=== PATIENT | male | born 1950 | race Caucasian/White ===

== ENCOUNTER → 2016-03-25 | Outpatient (CLI) | payer BC ==
[~2016-03-25] MED LIST: CALC500C50 PO; CLB/200 PO; CLON1TAB3 PO; HYDR-1838 PO; MELA3TAB7 PO; NAPR1TAB9 PO; ONDA4TAB10 SL; OXYC-57 PO; OXYC1TAB3 PO; TAMS0.4C38 PO; ZNT/150 PO; ZOLP5TAB PO
== END | disposition home or self-care (01) ==
LOC: C.RDSM 08:00
PROVIDERS: ATTEND Family Medicine
DX: M54.5 Low back pain (principal)

== ENCOUNTER → 2016-04-09 | Outpatient (CLI) | payer BC ==
--- NOTE | 2016-04-09 17:31 | DIAGNOSTIC IMAGING REPORT ---
SPECT scan BONE SCAN SPECT CLINICAL HISTORY: LOW BACK PAIN pain TECHNIQUE: Transaxial acquisition with multi axial SPECT images. COMPARISON STUDY: None FINDINGS: Degenerative activity about the right and to lesser extent left shoulder. Increased activity anterior aspect left ninth 10th and 11th ribs. This may be posttraumatic. Increase in activity about the knees bilaterally possibly consistent with the patient's known history of total knee arthroplasties. SPECT images of the spine demonstrate any increase in activity laterally at T6 level of the thoracic spine as well as the right lateral aspect of T11. Patchy areas of increased activity in the mid to low lumbar region are also present. IMPRESSION: 1. Scattered areas of degenerative and/or postoperative activity. 2. 3 foci of increased activity lower left ribs possibly posttraumatic. 3. Rather atypical increased neck cavity of the mid to lower thoracic spine as well as the lower lumbar spine. 4. Although this potentially is degenerative, MRI of the lumbar and thoracic region is recommended to exclude the possibility of a metastatic process. Electronically signed by: Ernie Muñiz M.D. 04/09/2016 5:30 PM Dictated Date/Time: 04/09/2016 5:26 PM
== END | disposition home or self-care (01) ==
LOC: C.NUCL 11:06
PROVIDERS: ATTEND Family Medicine
DX: M54.5 Low back pain (principal)

== ENCOUNTER → 2016-04-09 | Outpatient (CLI) | payer BC ==
--- NOTE | 2016-04-09 15:19 | DIAGNOSTIC IMAGING REPORT ---
RIGHT KNEE 3 VIEWS CLINICAL HISTORY: RIGHT KNEE PAIN S/P TKA Right COMPARISON STUDY: Bilateral knees 06/17/2014. FINDINGS: There are bilateral total knee arthroplasties. The right is a long stemmed constrained prosthesis. The hardware appears intact. No fracture or dislocation. No abnormal periprosthetic lucency. No significant right knee effusion. No soft tissue swelling. IMPRESSION: 1. Bilateral total knee arthroplasties. 2. The hardware is intact. No abnormal periprosthetic lucency. Electronically signed by: Renan Martin M.D. 04/09/2016 3:18 PM Dictated Date/Time: 04/09/2016 3:15 PM
== END | disposition home or self-care (01) ==
LOC: C.RDSM 08:00
PROVIDERS: ATTEND Physician Assistant
DX: Z96.653 Presence of artificial knee joint, bilateral (principal)

== ENCOUNTER → 2016-04-22 | Outpatient (CLI) | payer BC ==
--- NOTE | 2016-04-22 10:49 | DIAGNOSTIC IMAGING REPORT ---
ORBIT RADIOGRAPHS 3 VIEWS HISTORY: Pre-MRI screening. COMPARISON: None. FINDINGS: No orbital metallic foreign bodies noted. There is a 2 mm metallic density that projects over the left maxillary sinus. IMPRESSION: 1. No orbital metallic foreign body. 2. 2 mm metallic density adjacent to the left maxillary sinus. This does not represent a contraindication to MRI. Electronically signed by: Pako Oden M.D. 04/22/2016 10:47 AM Dictated Date/Time: 04/22/2016 10:44 AM
--- NOTE | 2016-04-22 11:59 | DIAGNOSTIC IMAGING REPORT ---
MRI OF THE THORACIC SPINE WITHOUT CONTRAST CLINICAL HISTORY: DORSALGIA, BACK PAIN COMPARISON: Bone scan April 09, 2016. TECHNIQUE: Utilizing a 1.5 Chantal magnet and dedicated coil, multiplanar, multiecho imaging of the thoracic spine was performed without IV contrast. FINDINGS: Alignment of the thoracic spine is anatomic. Vertebral body heights are maintained. There is a old mild compression deformity involving the superior endplate of L1. The lumbar spine will be reported separately. No areas of suspicious marrow replacement within the thoracic spine. A few small T1 and T2 hyperintense lesions represent hemangiomas. Thoracic cord signal and caliber are normal. There is no intracanalicular mass or fluid collection. Paravertebral soft tissues are unremarkable. There is mild to moderate multilevel disc space narrowing with mild disc bulges, noted at the T7-T8, T10-T11 and T 11-T12 levels. There is no significant central canal or neural foraminal stenosis. IMPRESSION: 1. Mild multilevel degenerative disc disease and facet arthrosis of the thoracic spine with mild multilevel disc bulges. No significant central canal or neural foraminal stenosis. 2. Normal thoracic cord signal and caliber. 3. No evidence of metastatic disease within the thoracic spine. The findings on the bone scan are likely degenerative. 4. Old mild L1 compression fracture. Electronically signed by: Pako Oden M.D. 04/22/2016 11:58 AM Dictated Date/Time: 04/22/2016 11:53 AM
--- NOTE | 2016-04-22 12:00 | DIAGNOSTIC IMAGING REPORT ---
MRI LUMBAR SPINE W/O CONTRAST CLINICAL HISTORY: Low back pain, abnormal bone scan. TECHNIQUE: Sagittal and axial T1, T2 and STIR images were obtained. COMPARISON STUDY: No previous studies for comparison. OBSERVATIONS: The vertebral bodies and posterior elements appear intact. There is no abnormal bony signal present to suggest a marrow replacement process. L1-2: No disc protrusions or extrusions. No evidence of spinal canal or neural foraminal compromise. L2-3: There is a mild circumferential disc bulge. There is minimal triangular spinal canal narrowing. There is no significant foraminal narrowing L3-4: There is a circumferential disc bulge. There is facet joint arthropathy. There is mild spinal stenosis. There is minor right-sided foraminal narrowing. L4-5: There is a circumferential disc bulge. There is mild triangular spinal canal narrowing. There is facet joint arthropathy. There is moderate right-sided foraminal narrowing and mild left-sided foraminal narrowing L5-S1: There is a grade 1 spondylolisthesis of L5 and S1. There is a circumferential disc bulge. There is facet joint arthropathy. There is mild bilateral foraminal narrowing. The conus medullaris and cauda equina appear normal. There is an old mild superior endplate L1 compression fracture. IMPRESSION: 1. Multilevel spondylitic changes with mild multilevel spinal canal narrowing and mild multilevel foraminal narrowing 2. Old superior endplate L1 compression deformity 3. No MRI evidence of metastatic disease. Electronically signed by: Noel Gaston M.D. 04/22/2016 11:59 AM Dictated Date/Time: 04/22/2016 11:53 AM
== END | disposition home or self-care (01) ==
LOC: C.RAD 10:18
PROVIDERS: ATTEND Family Medicine
DX: M54.9 Dorsalgia, unspecified (principal); Z13.5 Encounter for screening for eye and ear disorders; M51.34 Other intervertebral disc degeneration, thoracic region

== ENCOUNTER 2016-07-24 20:26 | Emergency (ER) | payer BC ==
[~2016-07-24] VITALS: Ht 165.1 cm; Wt 77.2 kg
[~2016-07-24 20:26] MED LIST changes: -CLB/200 PO; -CLON1TAB3 PO; -NAPR1TAB9 PO; -ONDA4TAB10 SL; -OXYC-57 PO; -OXYC1TAB3 PO; -TAMS0.4C38 PO
[2016-07-24 20:28] VITALS: TEMP 36.4; Ht 165.1 cm; Wt 77.2 kg
[2016-07-24] MEDS ORDERED: SODIUM CHLORIDE 0.9% 1000ML 1,000 ML IV STA (20:56)
[2016-07-24 21:10] LABS: URINE APPEARANCE CLEAR (CLEAR); URINE BILIRUBIN NEG (NEG); URINE COLOR YELLOW; URINE NITRITE NEG (NEG); URINE SPECIFIC GRAVITY 1.017 (1.000-1.030); UROBILINOGEN NEG (NEG)
[2016-07-24 21:17] LABS: BASO % 0.3 %; BASO ABS # 0.03 K/uL (0-0.2); COMPLETE YES; EOS % 0.9 %; HEMATOCRIT 46.5 % (42-52); IG% 0.2 %; LYMPH % 9.1 %; LYMPH ABS # 0.78 K/uL (1.2-3.4); MEAN CELL VOLUME 88.2 fL (80-100); MEAN CORPUSCULAR HEMOGLOBIN 30.7 pg (25-34); MEAN CORPUSCULAR HGB CONC 34.8 g/dl (32-36); MEAN PLATELET VOLUME 9.5 fL (7.4-10.4); NEUT % 80.5 %; PLATELET COUNT 180 K/uL (130-400); RED BLOOD COUNT 5.27 M/uL (4.7-6.1); WHITE BLOOD COUNT 8.58 K/uL (4.8-10.8)
[2016-07-24 21:23] LABS: MANUAL MICROSCOPIC REQUIRED? NO; REVIEW REQ? NO
[2016-07-24] MEDS ORDERED: NAPR1TAB9 PO (21:36)
[2016-07-24] MEDS ORDERED: CLON1TAB3 PO (21:36)
[2016-07-24] MEDS ORDERED: CLB/200 PO (21:36)
[2016-07-24 21:39] LABS: BUN/CREATININE RATIO 18.8 (10-20); CREATININE 1.3 mg/dl (0.60-1.40)
--- NOTE | 2016-07-24 21:39 | DIAGNOSTIC IMAGING REPORT ---
CT SCAN OF THE ABDOMEN AND PELVIS WITHOUT IV CONTRAST CLINICAL HISTORY: Left flank pain. COMPARISON STUDY: Abdominal CT dated 09/14/2012. TECHNIQUE: CT scan of the abdomen and pelvis is performed from the lung bases to the proximal femora. Images are reviewed in the axial, sagittal, and coronal planes. IV contrast was not administered for this examination as per the referring clinician. Automated dose control exposure was utilized. CT DOSE: 851.72 mGy.cm FINDINGS: Lung bases: The heart is normal in size and there is trace pericardial fluid. Linear scarring versus atelectasis is noted in the lingula. The lung bases are otherwise clear. There is a tiny hiatal hernia. Liver: The unenhanced liver is normal in size, contour, and attenuation. There is no intrahepatic biliary ductal dilatation. Gallbladder: Unremarkable. Spleen: Normal in size and attenuation. Pancreas: Unremarkable. Adrenal glands: Unremarkable. Kidneys: The unenhanced kidneys are normal in size. There is a 4 mm obstructing calculus in the distal left ureter located just above the vesicoureteral junction as seen on axial image #322. This causes mild to moderate left-sided hydroureteronephrosis. There is associated left-sided perinephric stranding and trace fluid. No additional calculi are identified in the left kidney. No right renal calculi are seen and there is no right-sided hydronephrosis. There is no evidence of contour deforming renal mass lesion. Abdominal vasculature: The abdominal aorta is normal in course and caliber noting moderate atherosclerotic calcification. Bowel: There are postoperative changes from rectosigmoid resection with colocolonic anastomosis. No bowel obstruction is identified. Mild colonic fecal retention is observed. The appendix is well-visualized and normal. Peritoneum: There is no intraperitoneal free air or abdominal ascites. There is a small fat-containing umbilical hernia. Lymphadenopathy: None. Pelvic viscera: The bladder, prostate, and seminal vesicles are normal as visualized. Skeletal structures: The skeletal structures are osteopenic. No lytic or blastic lesions are seen. Moderate lumbosacral spondylosis is observed. There are bilateral pars defects at L5 with grade 1 anterolisthesis at L5-S1. There is a mild and age indeterminant superior endplate compression deformity of L1. Sclerotic change is noted in the sacroiliac joints. There are healed left-sided rib fractures. IMPRESSION: 1. There is a 4 mm obstructing calculus in the distal left ureter just above the vesicoureteral junction. This causes mild to moderate left-sided hydroureteronephrosis. 2. No additional calculi are seen either kidney. 3. There are postoperative changes from rectosigmoid resection with colocolonic anastomosis. No bowel obstruction is seen. 4. Additional findings as above. Electronically signed by: Urbano Way M.D. 07/24/2016 9:38 PM Dictated Date/Time: 07/24/2016 9:32 PM
[2016-07-24 21:49] LABS: POTASSIUM 4.2 mmol/L (3.5-5.1)
[2016-07-24 22:10] LABS: CALCIUM 9.1 mg/dl (8.5-10.1)
[2016-07-24] MEDS ORDERED: KETOROLAC TROMETHAMINE 30 MG/ML VIAL IV STA (22:15)
--- NOTE | 2016-07-24 22:20 | EMERGENCY ROOM VISIT NOTE ---
History First contact with patient: 20:32 Chief Complaint: FLANK PAIN Stated Complaint: LEFT SIDE PAIN History of Present Illness The patient is a 65 year old male who presents to the Emergency Room with complaints of left flank pain that started around 2 PM today. Patient states the pain came on suddenly over about 10 minutes, was severe and sharp, 9/10. Associated nausea, no vomiting. No prior history of pain like this. Patient did not take any medications for the pain. He currently rates his pain as 3/10 , states it has subsided significantly on the way to the ER. He also states the pain improved after he urinated. He denies chest pain, shortness of breath , fever/chills, diarrhea/constipation, hematuria, dysuria, penile discharge. Past medical history significant for colon cancer which was treated with surgical resection and radiation 2002, patient currently in remission. Review of Systems GENERAL: Denies fevers, chills, malaise, fatigue, unintentional weight changes. HEENT: Denies dizziness, visual problems, hearing loss, tinnitus. Denies difficulty swallowing or oral lesions. PULMONARY: Denies cough, shortness of breath, sputum production or hemoptysis. CARDIOVASCULAR: Denies chest pain, palpitations, dyspnea on exertion, orthopnea or peripheral edema. GASTROINTESTINAL: + Abdominal pain/flank pain, nausea Denies diarrhea, constipation, vomiting. GENITOURINARY: Denies dysuria, frequency, urgency or nocturia. Denies hematuria. NEUROLOGIC: Denies history of epilepsy, CVA, TIA or chronic headaches. MUSCULOSKELETAL: Denies history of joint tenderness/swelling. SKIN: Denies rashes or lesions. PSYCHIATRIC: Denies history of depression or mental illness. ENDOCRINE: Denies history of diabetes, thyroid disorders, abnormal hair growth or sexual dysfunction. Past Medical/Surgical History Medical Problems: (1) Colon cancer Family History FH: cancer FH: heart disease Hypertension Social History Smoking Status: Never Smoker Alcohol Use: none Marital Status: Housing Status: lives with significant other Occupation Status: employed Current/Historical Medications Scheduled Celecoxib (CeleBREX), 200 MG PO QAM Clonazepam (Klonopin), 1 TAB PO HS Ondasetron Odt (Zofran Odt), 4 MG SL Q6H Tamsulosin Hcl (Flomax), 0.4 MG PO DAILY Scheduled PRN Naproxen (Aleve), 220 MG PO UD PRN for Pain Oxycodone/Acetaminophen 5MG/325MG (Percocet 5MG/325MG), 1 TABLET PO Q4H PRN for Pain Allergies Coded Allergies: Latex1 -Allergic Contact Dermititis (Verified Allergy, Unknown, ITCHING, 02/06/16) Physical Exam Vital Signs Date Time Temp Pulse Resp B/P (MAP) Pulse Ox O2 Delivery O2 Flow Rate FiO2 07/24/16 22:31 73 18 121/69 98 Room Air 07/24/16 21:11 74 07/24/16 20:28 36.4 78 18 147/96 97 Room Air Physical Exam CONSTITUTIONAL: No acute distress. Nontoxic appearing. Well appearing and well nourished. Mildly dehydrated. Alert and oriented X 4 with normal affect. HEENT: Normocephalic, atraumatic. Pupils equal, round and reactive to light, EOMI. TMs normal. Pharynx normal. Dry mucous membranes. NECK: Supple, full active range of motion without discomfort. RESPIRATORY: Clear to auscultation bilaterally with no wheezing, crackles, rhonchi or stridor. Equal expansion bilaterally. CARDIOVASCULAR: Regular rate and rhythm with no murmurs, rubs or gallops. Normal peripheral perfusion. No edema. GASTROINTESTINAL: Soft, nondistended. Bowel sounds present in all quadrants. Moderate tenderness in the left flank and mid abdomen, mild left CVA tenderness. No rebound, no guarding. MUSCULOSKELETAL: Full range of motion of all joints without discomfort. INTEGUMENTARY: No rash or other significant dermatologic conditions noted. NEUROLOGIC: Cranial nerves II-XII grossly intact. No focal neurologic deficits noted. Medical Decision & Procedures ER Provider Diagnostic Interpretation: CT SCAN OF THE ABDOMEN AND PELVIS WITHOUT IV CONTRAST CLINICAL HISTORY: Left flank pain. COMPARISON STUDY: Abdominal CT dated 09/14/2012. TECHNIQUE: CT scan of the abdomen and pelvis is performed from the lung bases to the proximal femora. Images are reviewed in the axial, sagittal, and coronal planes. IV contrast was not administered for this examination as per the referring clinician. Automated dose control exposure was utilized. CT DOSE: 851.72 mGy.cm FINDINGS: Lung bases: The heart is normal in size and there is trace pericardial fluid. Linear scarring versus atelectasis is noted in the lingula. The lung bases are otherwise clear. There is a tiny hiatal hernia. Liver: The unenhanced liver is normal in size, contour, and attenuation. There is no intrahepatic biliary ductal dilatation. Gallbladder: Unremarkable. Spleen: Normal in size and attenuation. Pancreas: Unremarkable. Adrenal glands: Unremarkable. Kidneys: The unenhanced kidneys are normal in size. There is a 4 mm obstructing calculus in the distal left ureter located just above the vesicoureteral junction as seen on axial image #322. This causes mild to moderate left-sided hydroureteronephrosis. There is associated left-sided perinephric stranding and trace fluid. No additional calculi are identified in the left kidney. No right renal calculi are seen and there is no right-sided hydronephrosis. There is no evidence of contour deforming renal mass lesion. Abdominal vasculature: The abdominal aorta is normal in course and caliber noting moderate atherosclerotic calcification. Bowel: There are postoperative changes from rectosigmoid resection with colocolonic anastomosis. No bowel obstruction is identified. Mild colonic fecal retention is observed. The appendix is well-visualized and normal. Peritoneum: There is no intraperitoneal free air or abdominal ascites. There is a small fat-containing umbilical hernia. Lymphadenopathy: None. Pelvic viscera: The bladder, prostate, and seminal vesicles are normal as visualized. Skeletal structures: The skeletal structures are osteopenic. No lytic or blastic lesions are seen. Moderate lumbosacral spondylosis is observed. There are bilateral pars defects at L5 with grade 1 anterolisthesis at L5-S1. There is a mild and age indeterminant superior endplate compression deformity of L1. Sclerotic change is noted in the sacroiliac joints. There are healed left-sided rib fractures. IMPRESSION: 1. There is a 4 mm obstructing calculus in the distal left ureter just above the vesicoureteral junction. This causes mild to moderate left-sided hydroureteronephrosis. 2. No additional calculi are seen either kidney. 3. There are postoperative changes from rectosigmoid resection with colocolonic anastomosis. No bowel obstruction is seen. 4. Additional findings as above. Laboratory Results 07/24/16 21:05 Red Blood Count 5.27, Mean Corpuscular Volume 88.2, Mean Corpuscular Hemoglobin 30.7, Mean Corpuscular Hemoglobin Concent 34.8, Mean Platelet Volume 9.5, Neutrophils (%) (Auto) 80.5, Lymphocytes (%) (Auto) 9.1, Monocytes (%) (Auto) 9.0, Eosinophils (%) (Auto) 0.9, Basophils (%) (Auto) 0.3, Neutrophils # (Auto) 6.90, Lymphocytes # (Auto) 0.78, Monocytes # (Auto) 0.77, Eosinophils # (Auto) 0.08, Basophils # (Auto) 0.03 07/24/16 21:05 Test 07/24/16 20:35 07/24/16 21:05 Urine Color YELLOW Urine Appearance CLEAR (CLEAR) Urine pH 5.0 (4.5-7.5) Urine Specific [place] 1.017 (1.000-1.030) Urine Protein NEG (NEG) Urine Glucose (UA) NEG (NEG) Urine Ketones NEG (NEG) Urine Occult Blood NEG (NEG) Urine Nitrite NEG (NEG) Urine Bilirubin NEG (NEG) Urine Urobilinogen NEG (NEG) Urine Leukocyte Esterase NEG (NEG) White Blood Count 8.58 K/uL (4.8-10.8) Red Blood Count 5.27 M/uL (4.7-6.1) Hemoglobin 16.2 g/dL (14.0-18.0) Hematocrit 46.5 % (42-52) Mean Corpuscular Volume 88.2 fL (80-100) Mean Corpuscular Hemoglobin 30.7 pg (25-34) Mean Corpuscular Hemoglobin Concent 34.8 g/dl (32-36) Platelet Count 180 K/uL (130-400) Mean Platelet Volume 9.5 fL (7.4-10.4) Neutrophils (%) (Auto) 80.5 % Lymphocytes (%) (Auto) 9.1 % Monocytes (%) (Auto) 9.0 % Eosinophils (%) (Auto) 0.9 % Basophils (%) (Auto) 0.3 % Neutrophils # (Auto) 6.90 K/uL (1.4-6.5) Lymphocytes # (Auto) 0.78 K/uL (1.2-3.4) Monocytes # (Auto) 0.77 K/uL (0.11-0.59) Eosinophils # (Auto) 0.08 K/uL (0-0.5) Basophils # (Auto) 0.03 K/uL (0-0.2) RDW Standard Deviation 43.7 fL (36.4-46.3) RDW Coefficient of Variation 13.5 % (11.5-14.5) Immature Granulocyte % (Auto) 0.2 % Immature Granulocyte # (Auto) 0.02 K/uL (0.00-0.02) Anion Gap 9.0 mmol/L (3-11) Est Creatinine Clear Calc Drug Dose 54.3 ml/min Estimated GFR () 66.4 Estimated GFR (Non- 57.3 BUN/Creatinine Ratio 18.8 (10-20) Calcium Level 9.1 mg/dl (8.5-10.1) Total Bilirubin 0.5 mg/dl (0.2-1) Direct Bilirubin 0.2 mg/dl (0-0.2) Aspartate Amino Transf (AST/SGOT) 29 U/L (15-37) Alanine Aminotransferase (ALT/SGPT) 46 U/L (12-78) Alkaline Phosphatase 91 U/L (45-117) Total Protein 6.8 gm/dl (6.4-8.2) Albumin 3.7 gm/dl (3.4-5.0) Lipase 161 U/L (73-393) Medications Administered Medications (Trade) Dose Ordered Sig/Jennifer Route Start Time Stop Time Status Last Admin Dose Admin Sodium Chloride 1,000 ml @ 999 mls/hr Q1H1M STAT IV 07/24/16 20:56 07/24/16 21:56 DC 07/24/16 21:13 999 MLS/HR Ketorolac Tromethamine (Toradol Inj) 15 mg NOW STAT IV 07/24/16 22:15 07/24/16 22:18 DC 07/24/16 22:29 15 MG Oxycodone/ Acetaminophen (Percocet 5/ 325MG Home Pack) 1 homepack UD ONCE PO 07/24/16 23:00 07/24/16 23:01 DC 07/24/16 23:02 1 [email or web address] Medical Decision CC: Patient presenting with complaint of left flank pain Interpretation of Labs: No leukocytosis, no anemia, no significant electrolyte abnormalities, borderline renal function, no UTI. Differential Diagnosis: Includes, but not limited to ureteral stone, obstructing stone, pyelonephritis, UTI, pancreatitis, diverticulitis, musculoskeletal strain/sprain. Medication Reconciliation: I attest that I have personally reviewed the patient' s current medication list. Vital signs review: I reviewed the patient's vital signs and interpret them as follows: T: Afebrile; BP: Normotensive; HR: Within normal limits; RR: Within normal limits Pulse Ox: Within normal limits Blood pressure screening: The patient was found to have normal blood pressure on screening and does not require follow-up for repeat blood pressure check. Summary of ED Course: Patient was evaluated at bedside, history of physical exam performed. He is alert and oriented, no acute distress and ambulatory. He currently rates his pain as 2/10 and states it is much improved from previously. He has left flank tenderness to palpation with mild left CVA tenderness. History and exam findings consistent with renal stone/ureteral colic. Orders were placed at bedside for labs, urinalysis, IV fluids and pain medication, CT abdomen/pelvis to evaluate for ureteral stone. Patient discussed with Dr. San, who agrees with my assessment and plan. Labs reviewed, unremarkable as above. CT scan reviewed, notable for a distal 4 mm obstructing ureteral stone. Patient was provided with a urine strainer kit, prescriptions for Percocet, Zofran, Flomax. Patient follow-up with his PCP and urology, contact information provided. Patient reassessed multiple times throughout ED stay, patient reports improved pain, remains well appearing. Vital signs stable. Patient updated on all results and plan for discharge home, plan for follow-up as well as return precautions. He verbalized understanding. Impression Primary Impression: Calculus of distal left ureter Departure Information Dispostion Home / Self-Care Condition GOOD Prescriptions Ondasetron Odt (ZOFRAN ODT) 4 Mg Tab 4 MG SL Q6H for Nausea for 3 Days, #12 TAB Prov: Lianet Sue, GINNY 6/05/07 Tamsulosin Hcl (FLOMAX) 0.4 Mg Cap 0.4 MG PO DAILY for 7 Days, #7 CAP Prov: Lianet Sue, GINNY /05/07 Oxycodone/Acetaminophen 5MG/325MG (PERCOCET 5MG/325MG) Tab 1 TABLET PO Q4H Y for Pain for 3 Days, #18 TAB PAIN Prov: Lianet Sue, [employer] /05/07 Referrals Oswald Howard (PCP) Josr Granda M.D. Patient Instructions ED Stone Renal W Colic, ED Strainer Urine, My [facility] Additional Instructions You have been treated in the Emergency Department today for a Kidney Stone ( Nephrolithiasis). You have been prescribed Percocet to be used for pain control. This is a narcotic medication. You cannot drive or consume alcohol while on this medicine. This medicine should only be used for pain that cannot be controlled with [id number] pain medicines. You have been prescribed Zofran to be used for any nausea or vomiting. Take as prescribed. You have been prescribed Flomax 0.4 mg to be taken ONCE daily. This medicine has been prescribed as it can help relax the smooth muscles of the urinary tract increasing transit time of the kidney stone. For pain control, you can use the following [id number] medicines (if >12 yo): - Regular strength (325mg/tab) Tylenol (acetaminophen) 2 tabs every 4-6 hours as needed. Do not exceed 12 tablets in a 24 hour period. Avoid taking more than 4 grams (4000 mg) of Tylenol per day. This includes any other sources of acetaminophen you may take on a regular basis. - Regular strength (200 mg/tab) Advil (ibuprofen) 1-2 tabs every 4-6 hours as needed. Do not exceed a dose of 3200 mg per day. You have been provided a strainer and specimen collection cup. You should strain your urine to collect any passed stones. Your stones can be placed into the specimen cup and taken to your Urologist for further evaluation. You have been provided the contact information for the on-call Urologist. You should contact the Urologist's office tomorrow to establish a follow-up appointment from today's Emergency Department visit. Return to the Emergency Department if your symptoms persist despite the treatment plan outlined above or if you develop the following symptoms: intractable pain, fever, chills, or large amounts of blood in your urine, or if you're unable to urinate for more than 8 hours.
[2016-07-24 22:31] VITALS: BP 121/69; PULSE 73; O2SAT 98
[2016-07-24] MEDS ORDERED: TAMS0.4C38 PO (22:48)
[2016-07-24] MEDS ORDERED: OXYC-57 PO (22:48)
[2016-07-24] MEDS ORDERED: ONDA4TAB10 SL (22:48)
[2016-07-24] MEDS ORDERED: PERCOCET HOME PACK PO ONE (23:00)
[2016-12-01] MEDS ORDERED: MULT-506 PO (09:06)
[2016-12-01] MEDS ORDERED: ASCA500 PO (09:06)
[2016-12-01] MEDS ORDERED: OXYC1TAB3 PO (09:06)
[2016-12-01] MEDS ORDERED: CLON1TAB3 PO (09:06)
[2016-12-01] MEDS ORDERED: CHOL1000 PO (09:06)
== END 2016-07-24 23:03 | disposition home or self-care (01) ==
LOC: C.EDB 20:27
DX: N20.1 Calculus of ureter (principal); Z85.038 Personal history of other malignant neoplasm of large intestine; Z80.9 Family history of malignant neoplasm, unspecified; Z82.49 Family history of ischemic heart disease and other diseases of the circulatory system; Z79.899 Other long term (current) drug therapy

== ENCOUNTER → 2016-08-05 | Outpatient (CLI) | payer BC ==
[~2016-08-05] MED LIST changes: +ASCA500 PO; -CALC500C50 PO; +CHOL1000 PO; +CLB/200 PO; +CLON1TAB3 PO; -HYDR-1838 PO; -MELA3TAB7 PO; +MULT-506 PO; +NAPR1TAB9 PO; +OXYC1TAB3 PO; +TAMS0.4C38 PO; -ZNT/150 PO; -ZOLP5TAB PO
--- NOTE | 2016-08-05 10:33 | DIAGNOSTIC IMAGING REPORT ---
LEFT SHOULDER 3 VIEWS HISTORY: LEFT SHOULDER PAIN COMPARISON: Left shoulder 04/14/2015. FINDINGS: There is no acute fracture or dislocation. Soft tissues are unremarkable. No radiopaque foreign bodies. Small ossific density adjacent to the distal clavicle, unchanged. This is likely due to an old injury. Mild cartilage space narrowing and small marginal osteophytes at the glenohumeral joint consistent with osteoarthritis. This remains unchanged. IMPRESSION: 1. Mild osteoarthritis at the glenohumeral joint, unchanged. 2. No fracture or dislocation within the left shoulder. Electronically signed by: Renan Martin M.D. 08/05/2016 10:31 AM Dictated Date/Time: 08/05/2016 10:29 AM
== END | disposition home or self-care (01) ==
LOC: C.RDSM 13:57
PROVIDERS: ATTEND Physician Assistant
DX: M25.512 Pain in left shoulder (principal); M19.012 Primary osteoarthritis, left shoulder

== ENCOUNTER 2016-09-06 00:43 | Emergency (ER) | payer BC, OTHER ==
[~2016-09-06] VITALS: Ht 165.1 cm; Wt 78.7 kg
[~2016-09-06 00:43] MED LIST changes: -ASCA500 PO; -CHOL1000 PO; -MULT-506 PO; -OXYC1TAB3 PO; -TAMS0.4C38 PO
[2016-09-06 00:45] VITALS: TEMP 36.7; Ht 165.1 cm; Wt 78.7 kg
[2016-09-06] MEDS ORDERED: SODIUM CHLORIDE 0.9% 1000ML 1,000 ML IV STA (00:59)
[2016-09-06] MEDS ORDERED: ONDANSETRON INJ 2 MG/ML 2 ML VIAL IV STA (00:59)
[2016-09-06 01:09] LABS: BASO % 0.4 %; BASO ABS # 0.04 K/uL (0-0.2); COMPLETE YES; HEMATOCRIT 45.3 % (42-52); IG% 0.3 %; LYMPH % 9.7 %; LYMPH ABS # 1.07 K/uL (1.2-3.4); MEAN CORPUSCULAR HEMOGLOBIN 31.4 pg (25-34); MEAN CORPUSCULAR HGB CONC 35.3 g/dl (32-36); MONO % 8.4 %; NEUT % 80.2 %; PLATELET COUNT 190 K/uL (130-400); RED BLOOD COUNT 5.09 M/uL (4.7-6.1); WHITE BLOOD COUNT 11.05 K/uL (4.8-10.8)
[2016-09-06] MEDS: MoRPHine SULFATE 4 MG/ML 1 ML CARP\\VIAL IV PRN ×2 (01:09→01:56)
--- NOTE | 2016-09-06 01:14 | EMERGENCY ROOM VISIT NOTE ---
History Report prepared by Bell: Pattie Pickering Under the Supervision of: Dr. Jesús Martin D.O. First contact with patient: 00:49 Chief Complaint: KIDNEY STONE Stated Complaint: KIDNEY STONE History of Present Illness The patient is a 65 year old male who presents to the Emergency Room with complaints of constant left flank pain starting 2100 tonight. The patient has a history of kidney stones. He was in the ED 6 weeks ago with a kidney stone. The pain had completely resolved until it began again today. He has not yet followed with urology. The pain gradually built up. He currently rates his discomfort as a 10/10 in severity. He reports nausea and vomiting. He denies any fever, chills, or hematuria. He is not on any blood thinners. He denies any other medical problems. Source of History: patient Onset: 2100 tonight Position: other (left flank) Symptom Intensity: 10/10 Quality: other (pain) Timing: constant Associated Symptoms: + nausea, + vomiting, No fevers, No chills Note: Pt denies hematuria. Review of Systems See HPI for pertinent positives & negatives. A total of 10 systems reviewed and were otherwise negative. Past Medical & Surgical Medical Problems: (1) Colon cancer Family History FH: cancer FH: heart disease Hypertension Social History Smoking Status: Never Smoker Alcohol Use: none Marital Status: Housing Status: lives with significant other Occupation Status: employed Current/Historical Medications Scheduled Celecoxib (CeleBREX), 200 MG PO QAM Clonazepam (Klonopin), 1 TAB PO HS Tamsulosin Hcl (Flomax), 0.4 MG PO DAILY Scheduled PRN Naproxen (Aleve), 220 MG PO UD PRN for Pain Oxycodone Immediate Rel Tab (Roxicodone Ir), 1-2 TAB PO Q4H PRN for Severe Pain Allergies Coded Allergies: Latex1 -Allergic Contact Dermititis (Verified Allergy, Unknown, ITCHING, ) Physical Exam Vital Signs Date Time Temp Pulse Resp B/P (MAP) Pulse Ox O2 Delivery O2 Flow Rate FiO2 09/06/16 03:30 87 18 130/81 96 Room Air 09/06/16 02:37 82 09/06/16 02:31 83 18 130/81 91 Room Air 09/06/16 01:44 79 20 143/99 98 Room Air 09/06/16 01:27 78 18 98 Room Air 09/06/16 01:19 86 09/06/16 00:45 36.7 82 22 163/103 98 Room Air Physical Exam GENERAL: Patient is awake, alert, very anxious appearing and uncomfortable. EYES: The conjunctivae are clear. The pupils are round and reactive. EARS, NOSE, MOUTH AND THROAT: The nose is without any evidence of any deformity. Mucous membranes are moist tongue is midline NECK: The neck is nontender and supple. RESPIRATORY: Normal respiratory effort is noted there is no evidence of wheezing rhonchi or rales CARDIOVASCULAR: Regular rate and rhythm noted there no murmurs rubs or gallops normal S1 normal S2 GASTROINTESTINAL: The abdomen is mildly distended, but soft. There was no significant tenderness, guarding, or rigidity appreciated. BACK: No midline tenderness or or step-off noted range of motion in flexion extension as well as rotation no signs of muscle spasm noted MUSCULOSKELETAL/EXTREMITIES: There is no evidence of gross deformity full range of motion is noted in the hips and shoulders SKIN: There is no obvious evidence of any rash. There are no petechiae, pallor or cyanosis noted. NEUROLOGIC: Patient is awake alert and oriented x3 strength is symmetric patellar reflexes are 2+ bilaterally Medical Decision & Procedures ER Provider Diagnostic Interpretation: X-ray results as stated below per interpretation by me. KUB X-ray: Fecal retention noted on the right, scoliosis noted, calcification in the left pelvis likely corresponding to previously noted ureteral calculus, no acute disease otherwise. Laboratory Results 09/06/16 01:00 Red Blood Count 5.09, Mean Corpuscular Volume 89.0, Mean Corpuscular Hemoglobin 31.4, Mean Corpuscular Hemoglobin Concent 35.3, Mean Platelet Volume 9.0, Neutrophils (%) (Auto) 80.2, Lymphocytes (%) (Auto) 9.7, Monocytes (%) (Auto) 8.4, Eosinophils (%) (Auto) 1.0, Basophils (%) (Auto) 0.4, Neutrophils # (Auto) 8.87, Lymphocytes # (Auto) 1.07, Monocytes # (Auto) 0.93, Eosinophils # (Auto) 0.11, Basophils # (Auto) 0.04 09/06/16 01:00 Test 09/06/16 01:00 09/06/16 01:55 White Blood Count 11.05 K/uL (4.8-10.8) Red Blood Count 5.09 M/uL (4.7-6.1) Hemoglobin 16.0 g/dL (14.0-18.0) Hematocrit 45.3 % (42-52) Mean Corpuscular Volume 89.0 fL (80-100) Mean Corpuscular Hemoglobin 31.4 pg (25-34) Mean Corpuscular Hemoglobin Concent 35.3 g/dl (32-36) Platelet Count 190 K/uL (130-400) Mean Platelet Volume 9.0 fL (7.4-10.4) Neutrophils (%) (Auto) 80.2 % Lymphocytes (%) (Auto) 9.7 % Monocytes (%) (Auto) 8.4 % Eosinophils (%) (Auto) 1.0 % Basophils (%) (Auto) 0.4 % Neutrophils # (Auto) 8.87 K/uL (1.4-6.5) Lymphocytes # (Auto) 1.07 K/uL (1.2-3.4) Monocytes # (Auto) 0.93 K/uL (0.11-0.59) Eosinophils # (Auto) 0.11 K/uL (0-0.5) Basophils # (Auto) 0.04 K/uL (0-0.2) RDW Standard Deviation 42.3 fL (36.4-46.3) RDW Coefficient of Variation 13.0 % (11.5-14.5) Immature Granulocyte % (Auto) 0.3 % Immature Granulocyte # (Auto) 0.03 K/uL (0.00-0.02) Anion Gap 9.0 mmol/L (3-11) Est Creatinine Clear Calc Drug Dose 54.8 ml/min Estimated GFR () 66.4 Estimated GFR (Non- 57.3 BUN/Creatinine Ratio 19.7 (10-20) Calcium Level 9.4 mg/dl (8.5-10.1) Total Bilirubin 0.6 mg/dl (0.2-1) Direct Bilirubin 0.1 mg/dl (0-0.2) Aspartate Amino Transf (AST/SGOT) 31 U/L (15-37) Alanine Aminotransferase (ALT/SGPT) 50 U/L (12-78) Alkaline Phosphatase 102 U/L (45-117) Total Protein 7.1 gm/dl (6.4-8.2) Albumin 3.7 gm/dl (3.4-5.0) Lipase 164 U/L (73-393) Urine Color YELLOW Urine Appearance CLEAR (CLEAR) Urine pH 6.0 (4.5-7.5) Urine Specific [place] 1.020 (1.000-1.030) Urine Protein NEG (NEG) Urine Glucose (UA) NEG (NEG) Urine Ketones NEG (NEG) Urine Occult Blood TRACE (NEG) Urine Nitrite NEG (NEG) Urine Bilirubin NEG (NEG) Urine Urobilinogen NEG (NEG) Urine Leukocyte Esterase NEG (NEG) Urine WBC (Auto) 0 /hpf (0-5) Urine RBC (Auto) 0-4 /hpf (0-4) Urine Hyaline Casts (Auto) 0 /lpf (0-5) Urine Epithelial Cells (Auto) 0-5 /lpf (0-5) Urine Bacteria (Auto) NEG (NEG) Laboratory results per my review. Medications Administered Medications (Trade) Dose Ordered Sig/Jennifer Route Start Time Stop Time Status Last Admin Dose Admin Sodium Chloride 1,000 ml @ 999 mls/hr Q1H1M STAT IV 09/06/16 00:59 09/06/16 01:59 DC 09/06/16 01:08 999 MLS/HR Ondansetron HCl (Zofran Inj) 4 mg NOW STAT IV 09/06/16 00:59 09/06/16 01:01 DC 09/06/16 01:09 4 MG Morphine Sulfate (MoRPHine SULFATE INJ) 4 mg Q15M PRN IV 09/06/16 01:00 09/06/16 04:25 DC 09/06/16 01:56 4 MG Oxycodone HCl (Roxicodone Immediate Rel 5MG Home Pack) 1 homepack UD ONCE PO 09/06/16 02:45 09/06/16 02:46 DC 09/06/16 02:53 1 HOMEPACK Ondansetron HCl (ZOFRAN ODT 4MG Home Pack) 1 homepack UD ONCE PO 09/06/16 02:45 09/06/16 02:46 DC 09/06/16 02:53 1 HOMEPACK ED Course 0058: The patient was evaluated in room A11B. A complete history and physical examination were performed. 0059: Zofran Inj 4 mg IV, NSS 1000 ml @ 999 mls/hr IV. 0100: Morphine Sulfate 4 mg IV. 0232: Upon reevaluation, the patient is feeling much better. I discussed the results and treatment plan with him. He verbalized agreement of the treatment plan. He was discharged home. 0245: Ondansetron HCl 1 homepack PO, Oxycodone HCl 1 homepack PO. Medical Decision Prior records/ancillary studies reviewed. Triage Nursing notes reviewed. The patient's history was concerning for left flank pain. Differential diagnosis: Etiologies such as renal colic, appendicitis, diverticulitis, mesenteric ischemia, aortic pathology, infections, inflammatory bowel disease, PUD, biliary pathology, UTI, as well as others were entertained. Medication Reconciliation: I attest that I have personally reviewed the patient' s current medications list. Blood pressure screening: Patient was found to have normal blood pressure on screening and does not require follow-up. The patient is a 65-year-old male who presented to the emergency department for evaluation of left flank pain. The patient has a recent diagnosis of a kidney stone. The patient had breakthrough pain and states that his pain was similar to the kidney stone pain he experienced recently. The patient was treated with IV fluids IV pain medicine and IV antiemetics. On subsequent reevaluation he was feeling much better. I discussed the patient's laboratory and radiographic studies with him. I also reviewed the patient's recent emergency department visit. The patient was given follow-up information with the [facility] urologist. He was encouraged to call to schedule follow-up appointment. The patient was encouraged to continue all other medications as prescribed. He was also encouraged to return to the emergency department immediately if symptoms change worsen or the need arises. Impression Primary Impression: Left flank pain Additional Impression: Ureteral colic Scribe Attestation The scribe's documentation has been prepared under my direction and personally reviewed by me in its entirety. I confirm that the note above accurately reflects all work, treatment, procedures, and medical decision making performed by me. Departure Information Dispostion Home / Self-Care Prescriptions Tamsulosin Hcl (FLOMAX) 0.4 Mg Cap 0.4 MG PO DAILY, #10 CAP Prov: Jesús Martin, DO 09/06/16 Oxycodone Immediate Rel Tab (ROXICODONE IR) 5 Mg Tab 1-2 TAB PO Q4H Y for Severe Pain, #24 TAB Prov: Jesús Martin, 09/06/16 Referrals No Doctor, Assigned (PCP) Rosemarie Delcid MD Forms HOME CARE DOCUMENTATION FORM, IMPORTANT VISIT INFORMATION Patient Instructions Kidney Stones, My [facility] Additional Instructions Continue to drink plenty clear liquids. Continue using Motrin and Tylenol as directed for mild pain. Call the urologist in the morning to schedule a follow- up appointment. Return to the emergency department immediately if symptoms change worsen or the need arises. Problem Qualifiers
[2016-09-06 01:46] LABS: BUN/CREATININE RATIO 19.7 (10-20); CALCIUM 9.4 mg/dl (8.5-10.1); CREATININE 1.3 mg/dl (0.60-1.40)
[2016-09-06 01:51] LABS: POTASSIUM 4.1 mmol/L (3.5-5.1)
[2016-09-06 02:12] LABS: URINE APPEARANCE CLEAR (CLEAR); URINE BILIRUBIN NEG (NEG); URINE COLOR YELLOW; URINE EPITHELIAL CELL AUTO 0-5 /lpf (0-5); URINE NITRITE NEG (NEG); UROBILINOGEN NEG (NEG)
[2016-09-06 02:13] LABS: MANUAL MICROSCOPIC REQUIRED? NO; REVIEW REQ? NO
[2016-09-06] MEDS ORDERED: TAMS0.4C38 PO (02:35)
[2016-09-06] MEDS ORDERED: OXYC1TAB3 PO (02:35)
[2016-09-06] MEDS ORDERED: ONDANSETRON HOME PACK 4MG OD TAB PO ONE (02:45)
[2016-09-06] MEDS ORDERED: OXYCODONE IR HOME PACK PO ONE (02:45)
[2016-09-06 03:30] VITALS: BP 130/81; PULSE 87; O2SAT 96
--- NOTE | 2016-09-06 06:57 | DIAGNOSTIC IMAGING REPORT ---
KUB CLINICAL HISTORY: Left flank pain COMPARISON STUDY: CT scan dated 07/24/2016 FINDINGS: There is no pathologic bowel dilatation. There is scattered stool within the colon. There is a lumbar dextroscoliosis. Degenerative changes are present within the spine. No renal calculi are visualized. There are 3 nonspecific pelvic basin calcifications. In the setting of flank pain, a distal ureteral calculus cannot be excluded. IMPRESSION: 1. Nonspecific pelvic basin calcifications 2. No evidence of pathologic bowel dilatation Electronically signed by: Noel Gaston M.D. 09/06/2016 6:55 AM Dictated Date/Time: 09/06/2016 6:53 AM
[2016-12-01] MEDS ORDERED: CHOL1000 PO (09:06)
[2016-12-01] MEDS ORDERED: ASCA500 PO (09:06)
[2016-12-01] MEDS ORDERED: MULT-506 PO (09:06)
[2016-12-01] MEDS ORDERED: CLON1TAB3 PO (09:06)
[2016-12-01] MEDS ORDERED: OXYC1TAB3 PO (09:06)
== END 2016-09-06 03:50 | disposition home or self-care (01) ==
LOC: C.EDB 00:44 → C.EDA 03:50
DX: N23 Unspecified renal colic (principal); R10.30 Lower abdominal pain, unspecified; Z87.442 Personal history of urinary calculi; Z85.038 Personal history of other malignant neoplasm of large intestine; Z79.899 Other long term (current) drug therapy; Z91.040 Latex allergy status; Z80.9 Family history of malignant neoplasm, unspecified; Z82.49 Family history of ischemic heart disease and other diseases of the circulatory system

== ENCOUNTER → 2016-12-15 | Day surgery (SDC) | payer BC ==
[2016-12-01 09:06] VITALS: Ht 167.6 cm; Wt 77.3 kg
[~2016-12-15] VITALS: Ht 167.6 cm; Wt 77.3 kg
[~2016-12-15] MED LIST changes: +ASCA500 PO; +CHOL1000 PO; +IOPAMIDOL INJ 61% 15 ML VIAL ONE; +LIDOCAINE HCL 1% MPF 5 ML VIAL ONE; +MULT-506 PO; +OXYC1TAB3 PO; +SODIUM CHLORIDE 0.9% INJ 10 ML VIAL ONE
--- NOTE | 2016-12-15 15:16 | History & Physical Bridge - SC ---
H&P Re-Evaluation Bridge Note: I have examined the patient, reviewed the History & Physical and in the interval since the performance of the History & Physical I have noted the following changes of clinical significance: Patient is at an ASA level 1 for LESI.No changes noted
[2016-12-15 15:35] VITALS: TEMP 36.8
--- NOTE | 2016-12-15 15:39 | Discharge Instructions ---
Discharge Instructions Date of Service Dec 15, 2016. Visit Reason for Visit: Lumbar Radiculopathy Discharge Discharge Diagnosis / Problem: right leg pain Discharge Goals Goal(s): Decrease discomfort, Improve function Medications Stopped Medications Name(s): Stopped Celebrex and Aleve. Last took Tuesday. Activity Recommendations Activity Limitations: resume your previous activity Anesthesia . Post Anesthesia Instructions: If you have had General Anesthesia or IV Sedation: * Do not drive today. * Resume driving when surgeon permits. * Do not make important decisions or sign legal documents today. * Call surgeon for: 1. Temperature elevations greater than 101 degrees F. 2. Uncontrollable pain. 3. Excessive bleeding. 4. Persistent nausea and vomiting. 5. Medication intolerance (nausea, vomiting or rash). * For nausea and vomiting use only clear liquids such as: tea, soda, bouillon until nausea subsides, then gradually increase diet as tolerated. * If you have any concerns or questions, call your surgeon's office. If physician is unavailable and it is an emergency, call 911 or go to the nearest emergency room. . Diet Recommendations Recommended Home Diet: resume previous diet Procedures Procedures Performed: LUMBAR EPIDURAL STEROID INJECTION Pending Studies Studies pending at discharge: no Medical Emergencies . Who to Call and When: Medical Emergencies: If at any time you feel your situation is an emergency, please call 911 immediately. . Non-Emergent Contact Non-Emergency issues call your: Specialist . . "Provider Documentation" section prepared by Delfino Fuller. .
[2016-12-15 15:43] VITALS: BP 143/92; PULSE 69; O2SAT 98
--- NOTE | 2016-12-15 15:55 | OPERATIVE REPORT ---
DATE OF OPERATION: 12/15/2016 PREOPERATIVE DIAGNOSIS: Right foraminal stenosis L5-S1 with a right lumbar radiculopathy. POSTOPERATIVE DIAGNOSIS: Same. PROCEDURE: Right paramedian L5-S1 intralaminar epidural steroid injection under fluoroscopic guidance. INDICATIONS: The patient is a 66-year-old white male that presents today for an epidural steroid injection as he has had radicular pain that has not responded to conservative treatment. He also has a known spondylolisthesis at L5-S1, causing radicular issues. PHYSICAL EXAMINATION: Pleasant male seated comfortably in no apparent distress. Flexion actually increases his pain. Extension actually improves his pain. He has a positive straight leg raise on the right lower extremity. He has no focal weakness and he has intact sensation distally at the L4, L5, and S1 dermatomes. CONSENT: Verbal and written consent was obtained from the patient. Risks and benefits were reviewed. Risks include, but are not limited to abscess, epidural abscess, epidural hematoma, allergic reaction and dural puncture. The patient wishes to proceed. DESCRIPTION OF PROCEDURE: The patient was taken back to the special procedures room of the [facility], where he was maintained in a prone position. Backside was cleansed with Betadine x3 and a dry sterile dressing was applied. Fluoroscope was used to identify the L5-S1 intralaminar space. Overlying skin on the right side was anesthetized with 4 mL of lidocaine 1% with a 25-gauge 1-1/2 inch needle. A 22-gauge 3-1/2 inch Tuohy needle was then directed down the intralaminar space, L5-S1. It was advanced under lateral fluoroscopic guidance and loss of resistance was noted at a depth of 5.5 cm. Isovue 300 contrast 0.5 mL was injected in, which demonstrated epidural uptake pattern. This was confirmed with both AP and then lateral view. He then underwent injection after negative aspiration of 40 mg of Depo-Medrol and 4 mL of preservative free sodium chloride. Injection was well tolerated. DISPOSITION: 1. The patient was taken out into the discharge recovery area, where he will be discharged home once discharge criteria have been met. 2. Follow up in the [facility] office in 2-4 weeks. I attest to the content of the Intraoperative Record and any orders documented therein. Any exception s are noted below.
== END | disposition home or self-care (01) ==
LOC: X.SURG 14:06
PROVIDERS: ATTEND Physical Medicine & Rehabilitation
DX: M48.07 Spinal stenosis, lumbosacral region (principal); M54.16 Radiculopathy, lumbar region; M43.17 Spondylolisthesis, lumbosacral region